=== PATIENT | female | born 1995 | race Two or more races ===

== ENCOUNTER 2020-01-15 01:05 | Emergency (ER) | payer OTHER ==
[~2020-01-15] VITALS: Ht 170.2 cm; Wt 96.2 kg
--- NOTE | 2020-01-15 01:11 | NUR ---
PT BIBRA C/O ETOH. [facility] "[facility] FRIEND. PT PLACED IN BED 12 ON MONITOR AND PULSE OX. VSS. NO ACUTE DISTRESS NOTED. AT BEDSIDE FOR JONEL. SALVADOR ORDERS
--- NOTE | 2020-01-15 01:12 | NUR ---
SPOKE TO FRIEND, STATED SHE WAS WITH THE PT WHEN SHE BECAME UNCONCIOUS IN THE RESTROOM. VSS. NO KO.
--- NOTE | 2020-01-15 02:59 | NUR ---
SPOKE TO THE MOTHER OF THE PT. 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
--- NOTE | 2020-01-15 03:59 | NUR ---
PT AWAKE, IN BED, PROVIDED WITH MORE BLANKETS.
--- NOTE | 2020-01-15 04:58 | NUR ---
PT AMBUALTED TO THE RESTROOM
[2020-01-15 06:15] VITALS: BP 121/64
--- NOTE | 2020-01-15 06:15 | NUR ---
Patient discharged to home in stable condition. Written and verbal after care instructions given. Patient verbalizes understanding of instruction. Picked up by friend.
== END 2020-01-15 06:16 | disposition home or self-care (01) ==
LOC: ER 01:07
DX: F10.129 Alcohol abuse with intoxication, unspecified (principal); R11.0 Nausea; Y90.9 Presence of alcohol in blood, level not specified